=== PATIENT | male | born 1965 | race Caucasian/White ===

== ENCOUNTER 2023-02-22 18:55 | Emergency (ER) | payer SELFPAY ==
[~2023-02-22] VITALS: Ht 172.7 cm; Wt 81.0 kg
[2023-02-22 19:08] VITALS: BP 147/83; O2SAT 99
[2023-02-22] MEDS ORDERED: TETANUS, DIPHTHERIA, PERTUSSIS VAC/PF 0.5ML (>10YR OLD) IM ONE (19:30)
[2023-02-22] MEDS ORDERED: LIDOCAINE HCL/PF 1% 10 MG/ML 5ML VIAL INFIL ONE (19:30)
[2023-02-22] MEDS ORDERED: BACITRACIN ZINC OINT UDPKT TOP ONE (19:30)
[2023-02-22 21:14] VITALS: PULSE 70; RESP 20; TEMP 98.5
== END 2023-02-22 21:18 | disposition home or self-care (01) ==
LOC: ER 18:55
DX: S51.011A Laceration without foreign body of right elbow, initial encounter (principal); I10 Essential (primary) hypertension; M79.605 Pain in left leg; V49.9XXA Car occupant (driver) (passenger) injured in unspecified traffic accident, initial encounter; Y93.89 Activity, other specified; Y92.89 Other specified places as the place of occurrence of the external cause; Y99.8 Other external cause status
CPT/HCPCS: 73552; 73080; 90715; 12002; 90471; 99284; J3490; Z7610 ×3